=== PATIENT | female | born 1985 | race American Indian/Alaskan Native ===

== ENCOUNTER 2018-02-27 18:02 | Emergency (ER) | payer BC, MEDICAID, OTHER ==
[2018-02-27 18:07] VITALS: BP 129/74
[2018-02-27] MEDS ORDERED: diphenhydrAMINE 50 MG/ML SDV IM ONE (18:30)
[2018-02-27] MEDS ORDERED: Promethazine 25 MG/ML SDV IM STA (18:31)
--- NOTE | 2018-02-27 18:32 | EDM.PDOC ---
ED HPI GENERAL MEDICAL PROBLEM - General Chief Complaint: Headache Stated Complaint: HEADACHE Time Seen by Provider: 02/27/18 18:22 Source of Information: Reports: Patient History Limitations: Reports: No Limitations - History of Present Illness INITIAL COMMENTS - FREE TEXT/NARRATIVE: states that she started to get a headache yesterday and it has progressively become worse. It is a sharp stabbing and behind her left eye. She rates it as a 10. She states she has never had a headache lie this in the past. She denies any head injury in the past. She states that she is photophobic with it. States that she quit drinking red bull which she had been doing on a daily basis. Has not had one in 4 days. Has been nauseated at times. She states that this comes in waves. No double or blurred vision. Onset: Gradual Duration: Day(s): (2) Quality: Reports: Sharp, Stabbing Worsens with: Reports: Movement Associated Symptoms: Reports: Nausea/Vomiting Left Temporal Headache Pain Score (Numeric/FACES): 8 - Related Data Allergies Allergy/AdvReac Type Severity Reaction Status Date / Time amoxicillin [Amoxicillin] Allergy Rash Verified 02/27/18 18:13 morphine Allergy Rash Verified 02/27/18 18:13 Penicillins Allergy Rash Verified 02/27/18 18:13 Home Meds: Home Meds Ibuprofen 600 mg PO Q6HR PRN 01/05/14 [History] Escitalopram [Lexapro] 10 mg PO DAILY 02/27/18 [History] Methylphenidate HCl [Concerta] 54 mg PO DAILY 02/27/18 [History] Past Medical History - Past Health History Medical/Surgical History: Denies 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 LMP October 11 Psychiatric History: Reports: ADHD, Anxiety, Depression - Past Surgical History Female Surgical History: Reports: Section Social & Family History - Family History Family Medical History: Noncontributory - Tobacco Use Smoking Status *Q: Never Smoker - Caffeine Use Caffeine Use: Reports: Energy Drinks - Recreational Drug Use Recreational Drug Use: No - Living Situation & Occupation Living situation: Reports: , with Family ED ROS GENERAL - Review of Systems Review Of Systems: See Below Constitutional: Denies: Fever, Chills HEENT: Reports: Eye Pain Respiratory: Reports: No Symptoms Cardiovascular: Reports: No Symptoms GI/Abdominal: Reports: Nausea. Denies: Vomiting : Reports: No Symptoms Musculoskeletal: Reports: No Symptoms Skin: Reports: No Symptoms Neurological: Reports: Headache. Denies: Confusion, Dizziness, Syncope - Physical Exam Exam: See Below Exam Limited By: No Limitations General Appearance: Alert, WD/WN, Moderate Distress Eye Exam: Bilateral Eye: PERRL (4 mm) Ears: Normal External Exam, Normal Canal, Normal TMs Nose: Normal Inspection Throat/Mouth: Normal Inspection, Normal Oropharynx, Normal Voice, No Airway Compromise Head Exam: Atraumatic, Normocephalic Neck: Normal Inspection, Supple, Non-Tender, Full Range of Motion Respiratory/Chest: No Respiratory Distress, Lungs Clear, Normal Breath Sounds Cardiovascular: Regular Rate, Rhythm, No Edema, No Murmur GI/Abdominal: Normal Bowel Sounds, Soft, Non-Tender Neuro Exam (Abbreviated): Alert, Oriented Extremities: No Pedal Edema Psychiatric: Normal Affect Skin Exam: Warm, Dry, Intact Course - Vital Signs Last Recorded V/S: Last Vital Signs Temp 97.7 F 02/27/18 18:03 Pulse 68 02/27/18 18:03 Resp 20 02/27/18 18:03 BP 129/74 02/27/18 18:03 Pulse Ox 99 02/27/18 18:03 - Orders/Labs/Meds Orders: Active Orders 24 hr Category Date Time Status Head wo Cont [CT] Stat Exams 02/27/18 18:27 Taken Meds: Medications Discontinued Medications Generic Name Dose Route Start Last Admin Trade Name Javy PRN Reason Stop Dose Admin Diphenhydramine HCl 25 mg 02/27/18 18:30 02/27/18 18:45 Benadryl IM 02/27/18 18:31 25 mg ONETIME ONE Administration Orphenadrine Citrate 60 mg 02/27/18 18:30 02/27/18 18:44 Norflex IM 02/27/18 18:31 60 mg NOW ONE Administration Promethazine HCl 25 mg 02/27/18 18:31 02/27/18 18:45 Phenergan IM 02/27/18 18:32 25 mg NOW STA Administration - Re-Assessments/Exams Free Text/Narrative Re-Assessment/Exam: 02/27/18 18:43 Will give IM shots while waiting for CT results. 01/17/[address] results [address]. Mahmood from radiology. Will set up for MRI. Pts states that her headache is much improved. Departure - Departure Time of Disposition: 19:04 Disposition: Home, Self-Care 01 Condition: Good Clinical Impression: Cluster headache syndrome - Discharge Information *PRESCRIPTION DRUG MONITORING PROGRAM REVIEWED*: No *COPY OF PRESCRIPTION DRUG MONITORING REPORT IN PATIENT TOO: No Referrals: PCP,None [Primary Care Provider] - Forms: ED Department Discharge Additional Instructions: Go home and sleep if possible Tylenol or advil as needed for headache that remains recheck with primary care provider if headaches continue - Problem List & Annotations (1) Cluster headache syndrome SNOMED Code(s): 187091252 Code(s): G44.009 - CLUSTER HEADACHE SYNDROME, UNSPECIFIED, NOT INTRACTABLE Status: Acute Priority: High - Problem List Review Problem List Initiated/Reviewed/Updated: Yes - My Orders Last 24 Hours: My Active Orders 02/27/18 18:27 Head wo Cont [CT] Stat - Assessment/Plan Last 24 Hours: My Active Orders 02/27/18 18:27 Head wo Cont [CT] Stat
== END 2018-02-27 19:15 | disposition home or self-care (01) ==
LOC: CC.ED 18:02
DX: G44.009 Cluster headache syndrome, unspecified, not intractable (principal); F41.9 Anxiety disorder, unspecified; F32.9 Major depressive disorder, single episode, unspecified; Z79.899 Other long term (current) drug therapy; Z88.1 Allergy status to other antibiotic agents; Z88.5 Allergy status to narcotic agent; Z88.0 Allergy status to penicillin
CPT/HCPCS: 70450; 96372; 99284; J1200; J2360; J2550

== ENCOUNTER 2018-05-08 20:59 | Emergency (ER) | payer BC ==
[2018-05-08 21:02] VITALS: BP 127/77
[2018-05-08 21:35] LABS: CHLORIDE,CL 104 mEq/L (98-106); SODIUM,NA 140 mEq/L (136-145)
--- NOTE | 2018-05-08 21:36 | EDM.PDOC ---
ED HPI GENERAL MEDICAL PROBLEM - General Chief Complaint: General Stated Complaint: fever, chills, body aches Time Seen by Provider: 05/08/18 21:19 Source of Information: Reports: Patient History Limitations: Reports: No Limitations - History of Present Illness INITIAL COMMENTS - FREE TEXT/NARRATIVE: States that she had a scratchy throat when she woke up this morning and symptoms have progressively become worse throughout the day. She has developed a fever, sore throat, body aches, dark urine, low back pain and chills. She has not taken any tylenol or advil throughout the day. She did work until 6 pm tonight. Has not been drinking well at work as she states that she typically doesn't. Does drink energy drinks during the day. Onset: Today Location: Reports: Generalized Quality: Reports: Ache Associated Symptoms: Reports: Fever/Chills. 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: Acetaminophen, NSAIDS Generalized Pain Score (Numeric/FACES): 7 - Related Data Allergies Allergy/AdvReac Type Severity Reaction Status Date / Time amoxicillin [Amoxicillin] Allergy Rash Verified 05/08/18 21:02 morphine Allergy Rash Verified 05/08/18 21:02 Penicillins Allergy Rash Verified 05/08/18 21:02 Home Meds: Home Meds Ibuprofen 600 mg PO Q6HR PRN 01/05/14 [History] Escitalopram [Lexapro] 10 mg PO DAILY 02/27/18 [History] Methylphenidate HCl [Concerta] 54 mg PO DAILY 02/27/18 [History] Past Medical History - Past Health History Medical/Surgical History: Denies 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 LMP October 11 Psychiatric History: Reports: ADHD, Anxiety, Depression - Past Surgical History Female Surgical History: Reports: Section Social & Family History - Family History Family Medical History: Noncontributory - Tobacco Use Smoking Status *Q: Never Smoker - Caffeine Use Caffeine Use: Reports: Energy Drinks - Recreational Drug Use Recreational Drug Use: No - Living Situation & Occupation Living situation: Reports: , with Family ED ROS GENERAL - Review of Systems Review Of Systems: See Below Constitutional: Reports: Fever, Chills, Weakness HEENT: Reports: No Symptoms Respiratory: Reports: No Symptoms Cardiovascular: Reports: No Symptoms GI/Abdominal: Denies: Diarrhea, Nausea, Vomiting : Reports: Other (urine dark and low back pain.) Musculoskeletal: Reports: Back Pain, Other (generalized joint pain) Skin: Denies: Rash ED EXAM, GENERAL - Physical Exam Exam: See Below Exam Limited By: No Limitations General Appearance: Alert, WD/WN, Mild Distress Ears: Normal External Exam, Normal Canal, Normal TMs Nose: Normal Inspection Throat/Mouth: Other (posterior pharynx and tonsils are red with white exudate noted bilaterally) Head: Atraumatic, Normocephalic Neck: Lymphadenopathy (L), Lymphadenopathy (R) (worse on right. Tender bilaterally) Respiratory/Chest: No Respiratory Distress, Lungs Clear, Normal Breath Sounds Cardiovascular: Normal Peripheral Pulses, No Edema, Tachycardia (does admit to drinking energy drinks today.) GI/Abdominal: Normal Bowel Sounds, Soft, Non-Tender, No Organomegaly Back Exam: Normal Inspection, Full Range of Motion Extremities: Normal Inspection, Normal Range of Motion, Non-Tender, No Pedal Edema, Normal Capillary Refill Neurological: Alert, Oriented, Normal Cognition Skin Exam: Warm, Dry, Intact Course - Vital Signs Last Recorded V/S: Last Vital Signs Temp 99.7 F 05/08/18 21:00 Pulse 99 05/08/18 21:00 Resp 18 05/08/18 21:00 BP 127/77 05/08/18 21:00 Pulse Ox 99 05/08/18 21:00 - Orders/Labs/Meds Labs: Laboratory Tests 05/08/18 05/08/18 05/08/18 Range/Units 21:09 21:20 21:20 WBC 14.5 H (5.0-10.0) 10^3/uL RBC 4.75 (4.00-5.50) 10^6/uL Hgb 14.3 (12.0-16.0) g/dL Hct 42.2 (37.0-47.0) % MCV 88.8 (82.0-94.0) fL MCH 30.1 (27.0-32.0) pg MCHC 33.9 (33.0-38.0) g/dL RDW Coeff of Dee 12.2 (11.0-15.0) % Plt Count 322 (150-400) 10^3/uL Neut % (Auto) 87.3 H (35-85) % Lymph % (Auto) 7.6 L (10-55) % [place] % (Auto) 4.3 (0-16) % Eos % (Auto) 0.6 (0-5) % Baso % (Auto) 0.2 (0-3) % Neut # (Auto) 12.68 H (1.80-7.00) 10^3/uL Lymph # (Auto) 1.11 (1.00-4.80) 10^3/uL [place] # (Auto) 0.63 (0.00-0.80) 10^3/uL Eos # (Auto) 0.08 (0.00-0.45) 10^3/uL Baso # (Auto) 0.03 10^3/uL Sodium 140 (136-145) mEq/L Potassium 3.8 (3.5-5.0) mEq/L Chloride 104 (98-106) mEq/L Carbon Dioxide 30 (21-32) mmol/L BUN 10 (7-18) mg/dL Creatinine 0.9 (0.6-1.0) mg/dL Est Cr Clr Drug Dosing 73.55 mL/min Estimated GFR (MDRD) > 60 (>=60) mL/min Glucose 104 H (75-99) mg/dL Calcium 8.6 (8.4-10.1) mg/dL C-Reactive Protein 1.6 H (0.2-0.8) mg/dL Urine Color Yellow (YELLOW) Urine Appearance Slightly cloudy (CLEAR) Urine pH 6.5 (4.5-8.0) Ur Specific [place] 1.020 (1.003-1.020) Urine Protein Trace H (NEGATIVE) mg/dL Urine Glucose (UA) Negative (NEGATIVE) mg/dL Urine Ketones Negative (NEGATIVE) mg/dL Urine Occult Blood Trace-lysed H (NEGATIVE) Urine Nitrite Negative (NEGATIVE) Urine Bilirubin Negative (NEGATIVE) Urine Urobilinogen 0.2 (0.2-1.0) EU/dL Ur Leukocyte Esterase Negative (NEGATIVE) Urine RBC 0-5 (0-5) /HPF Urine WBC 0-5 (0-5) /HPF Ur Squamous Epith Cells Few H (NOT SEEN) /HPF Urine Bacteria Few H (NOT SEEN) /HPF Urine Mucus Few H (NOT SEEN) /HPF Meds: Medications Discontinued Medications Generic Name Dose Route Start Last Admin Trade Name Javy PRN Reason Stop Dose Admin Ceftriaxone Sodium 1 gm 05/08/18 21:37 Rocephin IM 05/08/18 21:38 ONETIME ONE - Re-Assessments/Exams Free Text/Narrative Re-Assessment/Exam: 05/08/18 21:47 discussed that she has strep and influenza is negative. Departure - Departure Time of Disposition: 21:47 Disposition: Home, Self-Care 01 Condition: Good Clinical Impression: Strep pharyngitis - Discharge Information *PRESCRIPTION DRUG MONITORING PROGRAM REVIEWED*: Not Applicable *COPY OF PRESCRIPTION DRUG MONITORING REPORT IN PATIENT TOO: Not Applicable Referrals: PCP,None [Primary Care Provider] - Forms: ED Department Discharge Additional Instructions: Push fluids as much as possible- avoid energy drinks. tylenol alternate with advil as needed for fever and chills and body aches Tomorrow start z-dusty- take 2 first day and then 1 daily after that. No sharing glasses, utensils etc. - Problem List & Annotations (1) Strep pharyngitis SNOMED Code(s): 75081859 Code(s): J02.0 - STREPTOCOCCAL PHARYNGITIS Status: Acute Priority: High Current Visit: Yes - Problem List Review Problem List Initiated/Reviewed/Updated: Yes
[2018-05-08] MEDS ORDERED: cefTRIAXone 1 GM Vial IM ONE (21:37)
[2018-05-08] MEDS ORDERED: Lidocaine 1% 20 ML MDV ONE (21:45)
== END 2018-05-08 21:51 | disposition home or self-care (01) ==
LOC: CC.ED 20:59
DX: J02.0 Streptococcal pharyngitis (principal); F41.9 Anxiety disorder, unspecified; F32.9 Major depressive disorder, single episode, unspecified; F90.9 Attention-deficit hyperactivity disorder, unspecified type; Z88.1 Allergy status to other antibiotic agents; Z88.5 Allergy status to narcotic agent; Z88.0 Allergy status to penicillin
CPT/HCPCS: 36415; 80048; 81001; 85025; 86140; 87430; 87804; 96372; 99283; J0696

== ENCOUNTER 2018-11-09 19:16 | Emergency (ER) | payer BC ==
[2018-11-09 19:18] VITALS: BP 153/76; PULSE 105
--- NOTE | 2018-11-09 21:56 | EDM.PDOC ---
ED HPI GENERAL MEDICAL PROBLEM - General Chief Complaint: ENT Problem Stated Complaint: sore throat Time Seen by Provider: 11/09/18 19:28 Source of Information: Reports: Patient History Limitations: Reports: No Limitations - History of Present Illness INITIAL COMMENTS - FREE TEXT/NARRATIVE: in with c/o sore throat x past few days, also c/o ear ache, no runny nose, bno neck/back pain or stiffness, has had fever and chills Duration: Day(s): Location: Reports: Other (throat) Quality: Reports: Ache Severity: Mild Improves with: Reports: None Worsens with: Reports: Eating Associated Symptoms: Reports: Fever/Chills. Denies: Chest Pain, Cough, Headaches, Shortness of Breath Treatments GLACIOLOGIST: Reports: Other (see below) (none) Throat Pain Score (Numeric/FACES): 7 - Related Data Allergies Allergy/AdvReac Type Severity Reaction Status Date / Time amoxicillin [Amoxicillin] Allergy Rash Verified 11/09/18 19:21 morphine Allergy Rash Verified 11/09/18 19:21 Penicillins Allergy Rash Verified 11/09/18 19:21 Home Meds: Home Meds Ibuprofen 600 mg PO Q6HR PRN 01/05/14 [History] Escitalopram [Lexapro] 20 mg PO DAILY 02/27/18 [History] Methylphenidate HCl [Concerta] 54 mg PO DAILY 02/27/18 [History] Azithromycin [Zithromax] 500 mg PO DAILY 3 Days #3 tab 11/09/18 [Rx] Past Medical History - Past Health History Medical/Surgical History: Denies 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 LMP October 11 Psychiatric History: Reports: ADHD, Anxiety, Depression - Past Surgical History Female Surgical History: Reports: Section Social & Family History - Family History Family Medical History: Noncontributory - Tobacco Use Smoking Status *Q: Never Smoker - Caffeine Use Caffeine Use: Reports: Energy Drinks - Recreational Drug Use Recreational Drug Use: No - Living Situation & Occupation Living situation: Reports: , with Family ED ROS ENT - Review of Systems Review Of Systems: See Below Constitutional: Reports: No Symptoms, Fever, Chills HEENT: Reports: Ear Pain, Throat Pain. Denies: Sinus Problem Respiratory: Reports: No Symptoms. Denies: Shortness of Breath, Cough Cardiovascular: Reports: No Symptoms. Denies: Chest Pain GI/Abdominal: Reports: No Symptoms. Denies: Abdominal Pain, Nausea, Vomiting Musculoskeletal: Reports: No Symptoms Skin: Reports: No Symptoms. Denies: Rash Neurological: Reports: No Symptoms. Denies: Headache ED EXAM, ENT - Physical Exam Exam: See Below Exam Limited By: No Limitations General Appearance: Alert, WD/WN, No Apparent Distress Ears: Normal External Exam, Normal Canal, Hearing Grossly Normal, TM Erythema ( left). No: Normal TMs Nose: Normal Inspection, Normal Mucousa Mouth/Throat: Normal Inspection, Normal Lips. No: Normal Oropharynx (injected) Head: Atraumatic, Normocephalic Neck: Normal Inspection, Supple, Non-Tender, Full Range of Motion. No: Lymphadenopathy (L), Lymphadenopathy (R) Respiratory/Chest: No Respiratory Distress, Lungs Clear, Normal Breath Sounds Cardiovascular: Normal Peripheral Pulses, Regular Rate, Rhythm GI/Abdominal: Soft, Non-Tender Back: Normal Inspection, Full Range of Motion Extremities: Normal Inspection, Normal Range of Motion, Non-Tender, Normal Capillary Refill Neurological: Alert, Oriented, Normal Cognition, Normal Gait Psychiatric: Normal Affect Skin: Warm, Dry, Intact, Normal Color Course - Vital Signs Last Recorded V/S: Last Vital Signs Temp 37.0 C 11/09/18 19:16 Pulse 105 H 11/09/18 19:16 Resp 18 11/09/18 19:16 BP 153/76 H 11/09/18 19:16 Pulse Ox 99 11/09/18 19:16 - Orders/Labs/Meds Orders: Active Orders 24 hr Category Date Time Status Azithromycin [Zithromax] Med 11/09/18 21:48 Once 500 mg PO ONETIME ONE Medication Orders Azithromycin (Zithromax) 500 mg PO ONETIME ONE Stop: 11/09/18 21:49 Meds: Medications Generic Name Dose Route Start Last Admin Trade Name Freq PRN Reason Stop Dose Admin Azithromycin 500 mg 11/09/18 21:48 Zithromax PO 11/09/18 21:49 ONETIME ONE Departure - Departure Time of Disposition: 21:53 Disposition: Home, Self-Care 01 Condition: Good Clinical Impression: Otitis media, Pharyngitis - Discharge Information *PRESCRIPTION DRUG MONITORING PROGRAM REVIEWED*: Not Applicable *COPY OF PRESCRIPTION DRUG MONITORING REPORT IN PATIENT TOO: Not Applicable Prescriptions: Azithromycin [Zithromax] 500 mg PO DAILY 3 Days #3 tab Instructions: Pharyngitis, [id number], Otitis Media, Adult Referrals: PCP,Unknown [Primary Care Provider] - Additional Instructions: increase fluids see family doctor this week, call in am for an appointment time return to the ER sooner if worse or problems zithromax 500mg 1 x a day for 3 days - Problem List & Annotations (1) Otitis media SNOMED Code(s): 39400945 Code(s): H66.90 - OTITIS MEDIA, UNSPECIFIED, UNSPECIFIED EAR Status: Acute Priority: Medium Current Visit: Yes Qualifiers: Laterality: unspecified laterality Suppurative otitis media location: unspecified location (2) Pharyngitis SNOMED Code(s): 477723064 Code(s): J02.9 - ACUTE PHARYNGITIS, UNSPECIFIED Status: Acute Priority: Medium Current Visit: Yes Qualifiers: Pharyngitis/tonsillitis etiology: unspecified etiology Qualified Code(s): J02.9 - Acute pharyngitis, unspecified - Problem List Review Problem List Initiated/Reviewed/Updated: Yes - My Orders Last 24 Hours: My Active Orders 11/09/18 21:48 Azithromycin [Zithromax] 500 mg PO ONETIME ONE - Assessment/Plan Last 24 Hours: My Active Orders 11/09/18 21:48 Azithromycin [Zithromax] 500 mg PO ONETIME ONE Plan: as above
[2018-11-09] MEDS: Azithromycin 250 MG Tab PO ONE (22:03)
== END 2018-11-09 22:05 | disposition home or self-care (01) ==
LOC: CC.ED 19:16
DX: J02.9 Acute pharyngitis, unspecified (principal); H66.92 Otitis media, unspecified, left ear; F41.9 Anxiety disorder, unspecified; F32.9 Major depressive disorder, single episode, unspecified; Z88.0 Allergy status to penicillin; Z88.1 Allergy status to other antibiotic agents; Z88.5 Allergy status to narcotic agent; Z79.899 Other long term (current) drug therapy
CPT/HCPCS: 87430; 99283; A9270

== ENCOUNTER 2021-10-25 23:10 | Emergency (ER) | payer BC, OTHER ==
[2021-10-26 00:17] VITALS: BP 133/91; PULSE 77
== END 2021-10-26 00:51 | disposition home or self-care (01) ==
LOC: CC.ED 23:10
DX: R06.02 Shortness of breath (principal); U09.9 Post COVID-19 condition, unspecified; F17.210 Nicotine dependence, cigarettes, uncomplicated; Z88.1 Allergy status to other antibiotic agents; Z88.6 Allergy status to analgesic agent; Z88.0 Allergy status to penicillin; Z79.899 Other long term (current) drug therapy
CPT/HCPCS: 71046; 93010; 99284; 99285